=== PATIENT | female | born 1935 | race Caucasian/White ===

== ENCOUNTER 2016-05-20 21:51 | Emergency (ER) | payer OTHER, MEDICARE, BC ==
[~2016-05-20] VITALS: Ht 165.1 cm; Wt 71.8 kg
[~2016-05-20 21:51] MED LIST: CEPHALEXIN500 M1 PO; CIPRO 500MG TA500 MG PO; FISH OIL1 POW; LOPRESSOR 550 MG/TAB PO; LORTAB 7.5/5001 TAB; LORTAB 7.5/5001 TAB PO; MULTIPLE VITAMI1 CAP PO; MVI; NO HOME MEDICATIONS; PERCOCET 5/321 UDTAB PO; PYRIDIUM 100MG100 MG PO; antibiotic for uti
[2016-05-20 21:57] VITALS: BP 142/88; TEMP 97.5
[2016-05-20 23:23] VITALS: PULSE 60
== END 2016-05-20 23:24 | disposition home or self-care (01) ==
LOC: COL.ER 21:51
DX: S01.01XA Laceration without foreign body of scalp, initial encounter (principal); I10 Essential (primary) hypertension; V49.60XA Unspecified car occupant injured in collision with unspecified motor vehicles in traffic accident, initial encounter; Y92.414 Local residential or business street as the place of occurrence of the external cause

== ENCOUNTER → 2018-05-22 | Outpatient (CLI) | payer MEDICARE, BC ==
[2018-05-22 10:35] LABS: HEMATOCRIT 45.5 % (37.0-47.0); HEMOGLOBIN 14.6 g/dl (12.5-16.0); MEAN CELL VOLUME 94 fl (80.0-100.0); MEAN CORPUSCULAR HEMOGLOBIN 30 pg (27.0-31.0); MEAN CORPUSCULAR HGB CONC 32 g/dl (33.0-37.0); MEAN PLATELET VOLUME 9.2 fl (7.4-10.4); PLATELET COUNT 176 K/mm3 (130-400); RED BLOOD COUNT 4.82 M/mm3 (4.10-5.30); REDCELL DISTRIBUTION WIDTH-CV 14.2 % (11.5-14.5)
[2018-05-22 10:45] LABS: ANION GAP 8 mmol/L (7-16); BLOOD UREA NITROGEN 25 mg/dL (7-17); CALCIUM 9.4 mg/dL (8.4-10.2); CARBON DIOXIDE 28 mmol/L (22-30); CHLORIDE 104 mmol/L (98-107); CREATININE, serum 0.87 mg/dL (0.52-1.25); GLUCOSE 120 mg/dL (74-106); POTASSIUM 4.5 mmol/L (3.4-5.0); SODIUM 140 mmol/L (137-145)
[2018-05-22 11:12] LABS: TROPONIN-I < 0.012 ng/mL (0.000-0.035)
== END ==
LOC: COL.RAD 10:15
PROVIDERS: Internal Medicine Interventional Cardiology
DX: I20.9 Angina pectoris, unspecified (principal)

== ENCOUNTER 2018-06-08 11:11 | Day surgery (SDC) | payer MEDICARE, BC ==
[~2018-06-08] VITALS: Ht 165.1 cm; Wt 75.0 kg
[2018-06-08] VITALS (11 sets, daily range): BP systolic 113–136; BP diastolic 67–86; PULSE 69–78; TEMP 97.2
[2018-06-08] MEDS ORDERED: [UNRECOGNIZED DRUG - OTHER] (11:40)
[2018-06-08] MEDS ORDERED: TOPROL XL100 MG PO (11:42)
[2018-06-08 12:39] LABS: HEMATOCRIT 43.4 % (37.0-47.0); HEMOGLOBIN 13.7 g/dl (12.5-16.0); MEAN CELL VOLUME 94 fl (80.0-100.0); MEAN CORPUSCULAR HEMOGLOBIN 30 pg (27.0-31.0); MEAN CORPUSCULAR HGB CONC 32 g/dl (33.0-37.0); PLATELET COUNT 136 K/mm3 (130-400); RED BLOOD COUNT 4.64 M/mm3 (4.10-5.30); REDCELL DISTRIBUTION WIDTH-CV 14.2 % (11.5-14.5)
[2018-06-08 12:52] LABS: PROTHROMBIN TIME 11.9 SECONDS (9.7-12.8)
[2018-06-08 12:53] LABS: CALCIUM 9.1 mg/dL (8.4-10.2); CREATININE, serum 0.73 mg/dL (0.52-1.25); POTASSIUM 4.5 mmol/L (3.4-5.0)
--- NOTE | 2018-06-08 14:10 | NUR ---
ALL SEDATION MEDICATIONS GIVEN WITH VERBAL ORDER FROM MD. SEE MERGE FOR ADMIN TIMES. SEE MERGE FOR RASS/MODERATE SEDATION ASSESSMENTS DURING AND POST PROCEDURE.
--- NOTE | 2018-06-08 14:43 | NUR ---
Pt back to room 15 post cardiac cath.VSS and Ax0x3. Right femoral site is c/d/i and soft on palpation. Pulses readily palpable. Pt denies pain at this time and is tolerating sipping on fluids and eating.
--- NOTE | 2018-06-08 17:30 | NUR ---
Pt vitals remained stable post cardiac cath and pain 0/10 at this time. Tolerating food and fluids PO without issue and ambulated twice around nursing station without issue. Right femoral site remains c/d/i and soft on palpation. Discharge instructions reviewed and signed. Pt wheeled out safely via wheelchair with daughter present as drivers.
== END 2018-06-08 17:30 | disposition home or self-care (01) ==
LOC: COL.CAR 11:11
PROVIDERS: Internal Medicine Interventional Cardiology
DX: I20.8 Other forms of angina pectoris (principal); I10 Essential (primary) hypertension; Z95.0 Presence of cardiac pacemaker; Z82.49 Family history of ischemic heart disease and other diseases of the circulatory system; Z84.89 Family history of other specified conditions
CPT/HCPCS: C1760; C1894; J1644; J2250; J3010; Q9967

== ENCOUNTER → 2018-06-15 | Outpatient (CLI) | payer MEDICARE, BC ==
[~2018-06-15] MED LIST changes: +TOPROL XL100 MG PO; +[UNRECOGNIZED DRUG - OTHER]
[2018-06-15 15:26] LABS: BASO # 0.1 (0.0-0.2); BASO % 0.9 % (0.0-2.0); EOS # 0.3 (0.0-0.7); EOS % 4.7 % (0-4.0); GRAN # 3.5 (1.4-6.5); GRAN % 60.6 % (42.2-75.2); HEMATOCRIT 45.9 % (37.0-47.0); HEMOGLOBIN 14.6 g/dl (12.5-16.0); LYMPH # 1.4 (1.2-3.4); LYMPH % 24.4 % (20.0-51.0); MEAN CELL VOLUME 94 fl (80.0-100.0); MEAN CORPUSCULAR HEMOGLOBIN 30 pg (27.0-31.0); MEAN CORPUSCULAR HGB CONC 32 g/dl (33.0-37.0); MEAN PLATELET VOLUME 9.1 fl (7.4-10.4); MONO # 0.5 (0.1-0.6); MONO % 9.2 % (1.7-9.3); PLATELET COUNT 162 K/mm3 (130-400); RED BLOOD COUNT 4.91 M/mm3 (4.10-5.30); REDCELL DISTRIBUTION WIDTH-CV 13.9 % (11.5-14.5)
[2018-06-15 15:35] LABS: ALBUMIN 4.4 gm/dL (3.5-5.0); BILIRUBIN,TOTAL 0.9 mg/dL (0.0-1.0); CALCIUM 9.7 mg/dL (8.4-10.2); CREATININE, serum 0.78 mg/dL (0.52-1.25); POTASSIUM 3.9 mmol/L (3.4-5.0); TOTAL PROTEIN 7.4 gm/dL (6.4-8.2)
== END ==
LOC: COL.RAD 15:01
PROVIDERS: Physician Assistant Medical
DX: K80.20 Calculus of gallbladder without cholecystitis without obstruction (principal); R14.0 Abdominal distension (gaseous); Z95.0 Presence of cardiac pacemaker
CPT/HCPCS: Q9967

== ENCOUNTER → 2018-06-17 | Outpatient (CLI) | payer MEDICARE, BC ==
[2018-06-17 16:21] LABS: HEMATOCRIT 44.8 % (37.0-47.0); HEMOGLOBIN 14.4 g/dl (12.5-16.0); MEAN CELL VOLUME 93 fl (80.0-100.0); MEAN CORPUSCULAR HEMOGLOBIN 30 pg (27.0-31.0); MEAN CORPUSCULAR HGB CONC 32 g/dl (33.0-37.0); MEAN PLATELET VOLUME 9.4 fl (7.4-10.4); PLATELET COUNT 181 K/mm3 (130-400)
[2018-06-17 16:31] LABS: AMYLASE 55 U/L (30-110); ANION GAP 11 mmol/L (7-16); BLOOD UREA NITROGEN 20 mg/dL (7-17); CALCIUM 9.7 mg/dL (8.4-10.2); CARBON DIOXIDE 23 mmol/L (22-30); CHLORIDE 106 mmol/L (98-107); CREATININE, serum 0.82 mg/dL (0.52-1.25); GLUCOSE 103 mg/dL (74-106); LIPASE 111 U/L (23-300); POTASSIUM 3.9 mmol/L (3.4-5.0); SODIUM 140 mmol/L (137-145)
[2018-06-17 16:45] LABS: TROPONIN-I < 0.012 ng/mL (0.000-0.035)
== END ==
LOC: COL.LAB 15:57
PROVIDERS: Internal Medicine Interventional Cardiology
DX: R07.89 Other chest pain (principal)

== ENCOUNTER → 2020-03-07 | Outpatient (CLI) | payer MEDICARE, BC ==
[2020-03-07 16:01] LABS: TROPONIN-I < 0.012 ng/mL (0.000-0.035)
== END ==
LOC: ZCOL.LAB 15:09
PROVIDERS: Internal Medicine Interventional Cardiology
DX: Z03.818 Encounter for observation for suspected exposure to other biological agents ruled out (principal); R42 Dizziness and giddiness